=== PATIENT | male | born 1940 | race Caucasian/White ===

== ENCOUNTER → 2017-10-19 | Outpatient (CLI) | payer MEDICARE ==
[~2017-10-19] MED LIST: ACET-2146 PO; ASPI-715 PO; ASPI81TA94 PO; ATOR40TA69 PO; BLOO-1318 MC; BLOO-784 MC; CALC500T86 PO; CARV6.2574 PO; CHOL10005 PO; ENA5 PO; ENAL-1 PO; FLU45SYR17 IM; FUR40 PO; GLIM4TAB50 PO; GLIP10TA26 PO; GLY5 PO; METO25TA93 PO; MULT1CAP59 PO; OMEG-11 PO; OMEP-125 PO; OMEP-153 PO; OXYGENHOME INH; PANT40TA65 PO; PIOG45TA18 PO; PIOG45TA22 PO; PNEU0.5D3 IM; SIMV-42 PO; SIMV-49 PO
[2017-10-19 12:22] LABS: LDL CHOLESTEROL 64 mg/dl
== END ==
LOC: LAB 11:36
PROVIDERS: ATTEND Internal Medicine
DX: E11.9 Type 2 diabetes mellitus without complications (principal); E78.00 Pure hypercholesterolemia, unspecified
CPT/HCPCS: 36415; 82040; 82247; 82310; 82374; 82435; 82465; 82565; 82947; 83036; 83718; 84075; 84132; 84155; 84295; 84450; 84460; 84478; 84520

== ENCOUNTER 2017-11-06 00:38 | Day surgery (SDC) | payer MEDICARE ==
[~2017-11-06] VITALS: Ht 165.1 cm; Wt 74.8 kg
[2017-11-06] MEDS ORDERED: OPHTHALMIC PROCEDURE 2 OU PRN ×2 (10:00)
[2017-11-06] MEDS ORDERED: OPHTHALMIC PROCEDURE 1 OU PRN (10:00)
[2017-11-06 11:25] VITALS: BP 180/95
[2017-11-06] MEDS ORDERED: MIDAZOLAM 2 MG/2 ML VIAL IVP PRN (12:00)
[2017-11-06] MEDS ORDERED: NORMOSOL R SOLN(*) 1000 ML BAG 1,000 ML IV PRN (12:00)
[2017-11-06] MEDS ORDERED: LIDOCAINE/SOD BICARB 8.4% SYR ID ONE (12:00)
[2017-11-06] MEDS ORDERED: acetaZOLAMIDE 500 MG CAPCR PO ONE (13:30)
[2017-11-06 13:57] VITALS: BP 164/91
--- NOTE | 2017-11-06 18:04 | FOSTER LEFT EYE CATARACT ---
EVENT DATE: November 06, 2017 SURGEON: Frank Can MD ANESTHESIOLOGIST: Nelson Ramos MD ANESTHESIA: MAC PREOPERATIVE DIAGNOSIS Cataract, left eye. POSTOPERATIVE DIAGNOSIS Cataract, left eye. PROCEDURE Phacoemulsification of cataractous lens with implantation of an intraocular lens , left eye. DESCRIPTION OF PROCEDURE The risks and benefits and alternatives were carefully discussed with the patient, and preoperative consent was obtained. The patient was brought to the operating room, after receiving topical anesthetic. The patient was prepped and draped using sterile technique in the usual manner. A stab incision was made and the chamber was inflated with preservative-free lidocaine. DuoVisc was injected to inflate the chamber. A 2.2 mm blade was used to enter the anterior chamber. Utrata forceps were used to tear a circular capsulorrhexis. BSS was used to hydrodissect the nucleus. Phaco tip was introduced and the nucleus was chopped into four quadrants. Each quadrant was removed. The I/A tip was used to remove the cortex. The bag was inflated with ProVisc. The intraocular lens was injected into the capsular bag. The I/A tip was used to remove the ProVisc. The wound was found to be watertight. Vigamox, Nevanac and Maxitrol ointment were placed in the patient's eye. The patient's eye was patched and the patient was taken to the recovery room in stable condition. The patient was examined in the recovery room and found to be stable, prior to release from the hospital. SANJANA
== END 2017-11-06 14:14 | disposition home or self-care (01) ==
LOC: OR 00:38
PROVIDERS: ATTEND Ophthalmology
DX: H25.12 Age-related nuclear cataract, left eye (principal); E11.9 Type 2 diabetes mellitus without complications
CPT/HCPCS: 36416; 66984; 82948; A9270; V2632

== ENCOUNTER 2017-12-18 01:36 | Day surgery (SDC) | payer MEDICARE ==
[~2017-12-18] VITALS: Ht 167.6 cm; Wt 73.9 kg
[~2017-12-18 01:36] MED LIST changes: +ACET-1966 PO
[2017-12-18] MEDS ORDERED: OPHTHALMIC PROCEDURE 2 OD PRN ×2 (11:20)
[2017-12-18] MEDS ORDERED: OPHTHALMIC PROCEDURE 1 OD PRN (11:20)
[2017-12-18 11:59] VITALS: BP 160/90
[2017-12-18] MEDS ORDERED: MIDAZOLAM 2 MG/2 ML VIAL IVP PRN (12:00)
[2017-12-18] MEDS ORDERED: NORMOSOL R SOLN(*) 1000 ML BAG 1,000 ML IV PRN (12:00)
[2017-12-18] MEDS ORDERED: LIDOCAINE/SOD BICARB 8.4% SYR ID ONE (12:00)
[2017-12-18] MEDS ORDERED: acetaZOLAMIDE 500 MG CAPCR PO ONE (13:20)
[2017-12-18 14:18] VITALS: BP 166/90
--- NOTE | 2017-12-18 19:09 | FOSTER RIGHT EYE CATARACT ---
EVENT DATE: December 18, 2017 SURGEON: Frank Can MD ANESTHESIOLOGIST: None. ANESTHESIA: Topical. PREOPERATIVE DIAGNOSIS Cataract, right eye. POSTOPERATIVE DIAGNOSIS Cataract, right eye. PROCEDURE Phacoemulsification of cataractous lens with implantation of an intraocular lens , right eye. DESCRIPTION OF PROCEDURE The risks and benefits and alternatives were carefully discussed with the patient, and preoperative consent was obtained. The patient was brought to the operating room after receiving topical anesthetic. The patient was prepped and draped using sterile technique in the usual manner. A stab incision was made, and the chamber was inflated with preservative-free lidocaine. DuoVisc was injected to inflate the chamber. A 2.2 mm blade was used to enter the anterior chamber. Utrata forceps were used to tear a circular capsulorrhexis. BSS was used to hydrodissect the nucleus. Phaco tip was introduced, and the nucleus was chopped into four quadrants. Each quadrant was removed. The I/A tip was used to remove the cortex. The bag was inflated with ProVisc. The intraocular lens was injected into the capsular bag. The I/A tip was used to remove the ProVisc. The wound was found to be watertight. Vigamox, Nevanac, and Maxitrol ointment were placed in the patient's eye. The patient's eye was patched, and the patient was taken to the recovery room in stable condition. The patient was examined in the recovery room and found to be stable prior to release from the hospital. SANJANA
== END 2017-12-18 14:44 | disposition home or self-care (01) ==
LOC: OR 01:36
PROVIDERS: ATTEND Ophthalmology
DX: H25.11 Age-related nuclear cataract, right eye (principal)
CPT/HCPCS: 36416; 66984; 82948; A9270; V2632

== ENCOUNTER → 2018-02-12 | Outpatient (CLI) | payer MEDICARE ==
[2018-02-12 11:24] LABS: LDL CHOLESTEROL 55 mg/dl
== END ==
LOC: LAB 10:15
PROVIDERS: ATTEND Internal Medicine
DX: E11.9 Type 2 diabetes mellitus without complications (principal); E78.00 Pure hypercholesterolemia, unspecified
CPT/HCPCS: 36415; 82040; 82247; 82310; 82374; 82435; 82465; 82565; 82947; 83036; 83718; 84075; 84132; 84155; 84295; 84450; 84460; 84478; 84520

== ENCOUNTER → 2018-02-17 | Outpatient (CLI) | payer MEDICARE | LOC: LAB 14:37 | PROVIDERS: ATTEND Internal Medicine | DX: R76.9 Abnormal immunological finding in serum, unspecified (principal) | CPT/HCPCS: 36415; 82040; 84155 ==

== ENCOUNTER → 2018-07-03 | Outpatient (CLI) | payer MEDICARE ==
[~2018-07-03] MED LIST changes: +SIME125C52 PO
[2018-07-03 11:18] LABS: LDL CHOLESTEROL 62 mg/dl
== END ==
LOC: LAB 10:20
PROVIDERS: ATTEND Internal Medicine
DX: E11.65 Type 2 diabetes mellitus with hyperglycemia (principal); E78.00 Pure hypercholesterolemia, unspecified
CPT/HCPCS: 36415; 82040; 82247; 82310; 82374; 82435; 82465; 82565; 82947; 83036; 83718; 84075; 84132; 84155; 84295; 84450; 84460; 84478; 84520

== ENCOUNTER → 2018-10-22 | Outpatient (CLI) | payer MEDICARE ==
[~2018-10-22] MED LIST changes: +FLU180SY11 IM; +GLIP-179 PO; -GLIP10TA26 PO
[2018-10-22 11:05] LABS: LDL CHOLESTEROL 69 mg/dl
== END ==
LOC: LAB 10:20
PROVIDERS: ATTEND Internal Medicine
DX: E11.65 Type 2 diabetes mellitus with hyperglycemia (principal); E78.00 Pure hypercholesterolemia, unspecified
CPT/HCPCS: 36415; 82040; 82247; 82310; 82374; 82435; 82465; 82565; 82947; 83036; 83718; 84075; 84132; 84155; 84295; 84450; 84460; 84478; 84520